=== PATIENT | male | born 1995 | race Caucasian/White ===

== ENCOUNTER 2024-02-01 16:11 | Emergency (ER) | payer SELFPAY ==
[2024-02-01 16:14] VITALS: BP 106/82; PULSE 90; RESP 18; TEMP 36.4; O2SAT 98; BMI 21.5
[2024-02-01 18:40] VITALS: BP 120/66; PULSE 82; RESP 16; TEMP 36.9; O2SAT 100
--- NOTE | 2024-02-01 18:40 | EDS_ITS ---
HPI HPI - URI History of Present Illness Chief Complaint: Ear Problem Narrative Narrative: 28-year-old male who denies significant past medical history states he has been treated 3 times with antibiotics for ear pain. Is mainly has right ear which she has had pain for the last 3 to 4 months. At times, he loses hearing. He states he has been to multiple providers recently who usually put him on antibiotics. He has been taking antihistamines with minimal relief. He is a smoker. ROS ROS ED ROS Narrative Constitutional: No fever, no chills. HEENT: No sore throat. No neck pain. No loss of vision. No rhinorrhea. Right ear pain. Intermittent loss of hearing. Positive fullness sensation. Cardiovascular: No chest pain. No palpitations. No pedal edema. Respiratory: No cough, no shortness of breath. Abdominal: No abdominal pain. No nausea. No vomiting. Genitourinary: No dysuria. No hematuria. Musculoskeletal: No myalgias. No arthralgias. Neurologic: No headaches. No dizziness. No lightheadedness. Skin: No rash. No change in color. Psychiatric: No depression. No anxiety. [facility] Medical History Ear infection Home Medications albuterol sulfate 90 mcg/actuation aerosol inhaler (Ventolin HFA) 1 puff inhalation Q6H PRN PRN Wheezing 03/11/14 [History Last Taken Unknown] Allergy/AdvReac Type Severity Reaction Status Date / Time No Known Allergies Allergy Verified 02/01/24 16:14 Social History Smoking Status: Current every day smoker tobacco type: cigarettes EXAM Physical Exam Narrative Exam Narrative: Afebrile. Vital signs noted. HEENT: Normocephalic. Atraumatic. PERRL, EOMI. Neck soft and supple. No point tenderness or step off. Left TM clear. Right TM bulging with serous fluid. No erythema. No pain with movement of tragus. No mastoid erythema or tenderness. Cardiovascular: Regular rate and rhythm. No murmurs, rubs, or gallops appreciated. Respiratory: No tachypnea. Lungs clear to auscultation bilaterally. Gastrointestinal: Abdomen soft, nontender, with normoactive bowel sounds. No rebound or guarding. Neurological: Awake. Alert. Nonfocal, nonlateralizing. Skin: No rash. Normal color. No pallor. Musculoskeletal: No pedal edema. Full range of motion extremities. Const Vital Signs: 02/01/24 16:14 Temperature 97.6 F L Temperature Source Temporal Pulse Rate 90 Respiratory Rate 18 Blood Pressure 106/82 H Blood Pressure Mean 90 Pulse Ox 98 Oxygen Delivery Method Room Air MDM MDM MDM Narrative Medical decision making narrative: Based on his physical examination and history, I feel he has more of a serous otitis media than a bacterial otitis media. Although in the differential is mastoiditis, there are no clinical signs of this. I do not feel he needs laboratory work or imaging. Smoking cessation was discussed. He will continue his antihistamine, and additionally I will add a nasal steroid. He states he has been trying gentle insufflation as well. He was referred to otolaryngology as an outpatient. I do not feel antibiotics are indicated. I feel he be discharged safely home with follow-up. Return instructions to the emergency department were reviewed. Disposition is discharged home in stable condition. Discharge Plan Triage Chief Complaint: Ear Problem ED Provider: Herson Rivera Dx/Rx/DC Orders Prescriptions: No Action albuterol sulfate [Ventolin HFA] 1 INHALER inhaler 1 puff inhalation Q6H PRN PRN (Reason: Wheezing) prednisone 20 MG tablet 60 mg PO DAILY Qty: 15 0RF Primary Care Provider: Dioni Johnston Referrals: Dioni Johnston MD [Primary Care Provider] -
== END 2024-02-01 19:18 | disposition home or self-care (01) ==
LOC: ED 18:59
PROVIDERS: Emergency Provider Emergency Medicine; Visit Provider Emergency Medicine
DX: H66.91 Otitis media, unspecified, right ear (principal); F17.210 Nicotine dependence, cigarettes, uncomplicated
CPT/HCPCS: 99282